=== PATIENT | female | born 1985 | race Caucasian/White ===

== ENCOUNTER 2017-11-20 11:32 | Emergency (ER) | payer MEDICAID ==
[~2017-11-20] VITALS: Ht 154.9 cm; Wt 62.6 kg
[~2017-11-20 11:32] MED LIST: ACET-1304
[2017-11-20 11:37] VITALS: BP 131/80
[2017-11-20] MEDS ORDERED: IBUPROFEN 800 MG TAB PO ONE (13:00)
== END 2017-11-20 13:17 | disposition home or self-care (01) ==
LOC: ER 11:38
DX: S46.911A Strain of unspecified muscle, fascia and tendon at shoulder and upper arm level, right arm, initial encounter (principal); Z88.0 Allergy status to penicillin; Z79.899 Other long term (current) drug therapy; X50.9XXA Other and unspecified overexertion or strenuous movements or postures, initial encounter; Y93.89 Activity, other specified; Y92.89 Other specified places as the place of occurrence of the external cause; Y99.8 Other external cause status
CPT/HCPCS: 73030

== ENCOUNTER 2019-12-17 13:21 | Emergency (ER) | payer MEDICAID ==
[~2019-12-17] VITALS: Ht 152.4 cm; Wt 67.6 kg
[2019-12-17] MEDS ORDERED: ACETAMINOPHEN 500 MG TAB PO ONE (13:30)
[2019-12-17] MEDS ORDERED: SODIUM CHLORIDE 0.9% 1,000 ML IV ONE (13:30)
[2019-12-17 14:07] LABS: Basophils # (auto) 0 10 ^3/uL (0-0.2); Basophils % (auto) 0.4 % (0.0-2.0); Eosinophils # (auto) 0 10 ^3/uL (0-0.8); Eosinophils % (auto) 0.1 % (0.0-7.0); Hemoglobin 14.7 g/dL (12.2-16.2); Lymphocytes # (auto) 1.1 10 ^3/uL (0.4-5.4); Lymphocytes % (auto) 10.4 % (10.0-50.0); Mean Corpuscular Hemoglobin 32.4 pg (28.0-32.0); Mean Corpuscular Hgb Conc. 34.2 g/dL (32.0-36.0); Mean Corpuscular Volume 94.7 fL (80.0-100.0); Monocytes # (auto) 0.8 10 ^3/uL (0-1.3); Monocytes % (auto) 7.4 % (0.0-12.0); Neutrophils # (auto) 8.8 10 ^3/uL (1.6-8.6); Neutrophils % (auto) 81.7 % (37.0-80.0); Platelet Count (auto) 257 10^3/uL (140-450); Red Blood Cells 4.53 10^6/uL (4.0-5.20); Red Cell Distribution Width 12.9 % (11.8-14.3); White Blood Cell 10.7 10^3/uL (4.4-10.8)
[2019-12-17 14:16] LABS: Urine Bacteria FEW /hpf (None Seen); Urine Blood 2+ /uL (Negative); Urine Mucus FEW (None Seen); Urine Specific Gravity 1.016 (1.001-1.035); Urine WBC 1334 /hpf (0 - 5); Urine WBC Clumps PRESENT /hpf (None Seen)
[2019-12-17 14:27] LABS: Albumin 3.4 g/dL (3.4-5.0); BUN/Creatinine Ratio 8.2; Calcium 8.8 mg/dL (8.5-10.1); Magnesium 1.5 mg/dL (1.6-2.6)
[2019-12-17 14:30] LABS: Bilirubin, Total 0.4 mg/dL (0.2-1.0)
[2019-12-17] MEDS ORDERED: cefTRIAXone 1GM/50ML D5W 50 ML IV ONE (16:00)
[2019-12-17 17:17] VITALS: BP 104/50
== END 2019-12-17 17:17 | disposition home or self-care (01) ==
LOC: ER 13:21 → EDBD 13:21 → EDUNIT# 13:21 → ER 17:17
DX: N10 Acute pyelonephritis (principal); E83.42 Hypomagnesemia; Z20.828 Contact with and (suspected) exposure to other viral communicable diseases
CPT/HCPCS: 36415; 71045; 80053; 81001; 83605; 83735; 85025; 87040; 87070; 87077; 87186; 87804; 87880; 96365; 99284; J0696; U0003

== ENCOUNTER 2021-05-04 16:19 | Emergency (ER) | payer MEDICAID ==
[~2021-05-04] VITALS: Ht 154.9 cm; Wt 67.6 kg
[2021-05-04 18:39] VITALS: BP 117/96
[2021-05-04] MEDS ORDERED: methylPREDNISolone SOD SUCC 125 MG/2 ML VL IM ONE (18:45)
[2021-05-04] MEDS ORDERED: KETOROLAC TROMETH 60MG/2ML VIAL IM ONE (18:45)
== END 2021-05-04 19:02 | disposition home or self-care (01) ==
LOC: ER 16:20
DX: K02.9 Dental caries, unspecified (principal); Z79.899 Other long term (current) drug therapy; Z88.0 Allergy status to penicillin
CPT/HCPCS: 96372; 99284; J1885; J2930

== ENCOUNTER 2024-03-13 18:29 | Emergency (ER) | payer MEDICAID ==
[~2024-03-13] VITALS: Ht 154.9 cm; Wt 61.7 kg
[2024-03-13 18:32] VITALS: BP 122/85; PULSE 88; RESP 20; O2SAT 97
[2024-03-13] MEDS ORDERED: ACET500T58 PO (21:01)
[2024-03-13] MEDS ORDERED: IBUP-1455 PO (21:01)
[2024-03-13] MEDS ORDERED: CYCL-839 PO (21:01)
[2024-03-13] MEDS: KETOROLAC TROMETH 60MG/2ML VIAL IM ONE (22:21)
[2024-03-13] MEDS: HYDROcodone-ACET 5/325MG TAB PO ONE (22:21)
[2024-03-13] MEDS: DexAMETHasone SOD PHOS 10MG/1ML VIAL INJ IM ONE (22:21)
== END 2024-03-13 22:41 | disposition home or self-care (01) ==
LOC: ER 18:29
DX: M47.812 Spondylosis without myelopathy or radiculopathy, cervical region (principal); M62.838 Other muscle spasm; Z88.0 Allergy status to penicillin; Z79.899 Other long term (current) drug therapy
CPT/HCPCS: 72040; 96372; 99284; J1100; J1885